=== PATIENT | female | born 1950 | race Two or more races ===

== ENCOUNTER 2016-09-28 21:28 | Emergency (ER) | payer MEDICARE ==
[~2016-09-28] VITALS: Ht 157.5 cm; Wt 81.2 kg
[2016-09-29] MEDS ORDERED: METOCLOPRAMIDE HCL 10 MG TAB PO ONE (02:30)
[2016-09-29] MEDS ORDERED: diphenhdrAMINE HCL 25 MG CAP PO ONE (04:30)
[2016-09-29] MEDS ORDERED: KETOROLAC TROMETH 60MG/2ML VIAL IM ONE (04:30)
[2016-09-29 05:43] VITALS: BP 109/64
== END 2016-09-29 05:55 | disposition home or self-care (01) ==
LOC: ER 21:33
DX: G43.909 Migraine, unspecified, not intractable, without status migrainosus (principal); R42 Dizziness and giddiness; J45.909 Unspecified asthma, uncomplicated; I10 Essential (primary) hypertension; Z90.49 Acquired absence of other specified parts of digestive tract; R53.1 Weakness
CPT/HCPCS: 70450; 96372; 99284; J1885; J8597